=== PATIENT | female | born 2000 | race Caucasian/White ===

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

== ENCOUNTER → 2023-01-30 | Outpatient (CLI) | payer BC ==
--- NOTE | 2023-02-05 20:01 | CT ---
EXAMINATION TYPE: CT sinus wo con CT DLP: 597 mGycm, Automated exposure control for dose reduction was used. DATE OF EXAM: 01/30/2023 8:46 AM COMPARISON: None. CLINICAL INDICATION:Female, 22 years old with history of J32.0 CHRONIC MAXILLARY SINUSITIS; , chronic sinusitis TECHNIQUE: Multiple thin axial images were obtained through the paranasal sinuses without the use of IV contrast. Additional coronal and sagittal reformatted images were submitted for evaluation. Contrast used: none Oral contrast used: none FINDINGS: Frontal sinuses: Normally developed and aerated. Frontal Recess: Clear Maxillary Sinuses: Normally developed. Mild lobular mucosal thickening inferiorly, small amount on th e left and slightly greater on the right measuring up to 1.5 cm. Maxillary Infundibula([facility]): Clear, . Ethmoid sinuses: Normally developed and aerated. Ethmoidal notch: Protected and abutting the lateral lamina. Sphenoid sinuses: Normally developed and aerated. No evidence of dehiscence. Sphenoethmoidal recesses : Clear. Nasal septum: Mild deviation towards the left. Nasal Turbinates: Within normal limits. Mastoid air cells & middle ears: The air cells are clear. The middle ears are grossly unremarkable. Modified Soft tissues & Brain: Partially seen without gross abnormality. Globes appear intact. Other: Cribriform plate demonstrates symmetric Keros classification type 2 cribriform plate. No evidence of bony dehiscence of skull base. Lamina papyracea is intact without evidence of remote orbital fracture or orbital prolapse into the e thmoid sinus. IMPRESSION: Mild mucosal thickening along the inferior maxillary sinuses bilaterally. The ostiomeatal complexes appear patent.
== END | disposition home or self-care (01) ==
LOC: RADCTMAIN 08:19
PROVIDERS: ATTEND Otolaryngology
DX: J32.0 Chronic maxillary sinusitis (principal); J34.89 Other specified disorders of nose and nasal sinuses
CPT/HCPCS: 70486

== ENCOUNTER 2023-06-18 06:10 | Day surgery (SDC) | payer BC ==
[2023-06-14 09:24] VITALS: BMI 24.1
[2023-06-18] MEDS ORDERED: SODIUM CHLORIDE 0.9% 1,000 ML IV SCH (06:20)
[2023-06-18] MEDS: SODIUM CHLORIDE 0.9% 1,000 ML IV ONE (06:33)
[2023-06-18 07:31] VITALS: BP 129/84; PULSE 56; RESP 16; TEMP 97.4
--- NOTE | 2023-06-19 12:44 | P.EPPROC ---
- EP Procedure Note Electrophysiology Procedure Note: Diagnosis Recurrent syncope associated trauma Twelve-lead EKG shows sinus rhythm with a first-degree AV block of 230 ms narrow QRS normal axis normal ST segments No evidence for Brugada abnormality Normal QT interval Tilt table test per protocol Baseline blood pressure 128/61 mmHg, baseline heart rate 58 beats minute Patient was tilted upright in angle of 70 degrees per protocol The heart rate immediately increased to 90 beats a minute and subsequently to greater than 100 beats a minute She will very dizzy and lightheaded within 8 minutes of upright tilting Blood pressure at that time was 128/63 mmHg with sinus tachycardia 122 beats a minute subsequently she became dizzy nauseous and had a syncopal spell that was associated with severe sinus bradycardia and multiple sinus pauses When she was laid supine heart rate slowly normalized and so did her blood pressure She was nauseous and dizzy when she was laid supine Impression Prolonged SC interval at 230 ms with a heart rate of 61 beats a minute without any other abnormality on EKG Postural tachycardia, sinus tachycardia followed by Typical vasovagal syncope preceded by sinus tachycardia followed by a simultaneous drop in blood pressure and heart rate with sinus pauses Primary pauses 8 seconds, secondary pause 6 seconds Mixed vasodepressive response with simultaneous drop in blood pressure and heart rate, this was preceded by sinus tachycardia Suggest Increase fluid and salt intake Add Florinef p.o. Lower extremity strengthening exercises Instruct regarding isometric contractions of the lower extremity muscles early during the prodrome Consider implantation of loop monitor if she continues to have symptoms of di zziness presyncope and syncope and if significant sinus pauses/sinus bradycardia are documented during symptomatic spells, consider diagnostic EP study and ablation/cardio neuro ablation
== END 2023-06-18 08:57 | disposition home or self-care (01) ==
LOC: CATHEP 06:10
PROVIDERS: ATTEND Internal Medicine Clinical Cardiac Electrophysiology
DX: R55 Syncope and collapse (principal); Z79.899 Other long term (current) drug therapy
CPT/HCPCS: 81025; 93660